=== PATIENT | female | born 1995 | race Caucasian/White ===

== ENCOUNTER 2022-02-01 11:36 | Emergency (ER) | payer OTHER ==
[2022-02-01] MEDS ORDERED: IBUPROFEN600 MG PO (13:15)
== END 2022-02-01 13:30 | disposition home or self-care (01) ==
LOC: ER1 11:36
DX: S93.401A Sprain of unspecified ligament of right ankle, initial encounter (principal); S80.02XA Contusion of left knee, initial encounter; W01.0XXA Fall on same level from slipping, tripping and stumbling without subsequent striking against object, initial encounter; F17.200 Nicotine dependence, unspecified, uncomplicated
CPT/HCPCS: 73564; 73610; 73630; 99283

== ENCOUNTER → 2022-07-28 | Outpatient (CLI) | payer OTHER ==
[~2022-07-28] MED LIST: IBUPROFEN600 MG PO
== END ==
LOC: KOH-I 09:26
DX: M25.511 Pain in right shoulder (principal)
CPT/HCPCS: 73721